=== PATIENT | female | born 1980 | race Caucasian/White ===

== ENCOUNTER → 2019-06-22 10:20 | Outpatient (CLI) | payer OTHER, SELFPAY ==
[2019-06-27 14:43] LABS: HPV Reflexed? NOT INDICATED
== END ==
PROVIDERS: Family Provider Family Medicine; PCP Family Medicine; Referring Provider Obstetrics & Gynecology; Visit Provider Obstetrics & Gynecology
DX: Z12.4 Encounter for screening for malignant neoplasm of cervix (principal)
CPT/HCPCS: 88175; G0145

== ENCOUNTER 2024-09-01 06:53 | Day surgery (SDC) | payer OTHER, SELFPAY ==
[2024-09-01] VITALS (9 sets, daily range): BP systolic 102–139; BP diastolic 63–81; PULSE 61–106; RESP 16; TEMP 35.9–37.2; O2SAT 100; BMI 33.5
[2024-09-01 07:31] LABS: Internal QC Validated? YES +Cl - CLEAR BKGD; Pregnancy, Urine Negative Negative
--- NOTE | 2024-09-01 08:01 | PRE.ANES_ITS ---
ASA Classification* ASA Classification ASA Classification: 1 Assessment & Plan Anesthesia* Anesthesia Assessment Anesthesia Assessment: Discussed sedation and/or anesthesia options, risks, benefits, and alternatives with patient/parents/legal guardian/POA. Questions invited. The patient/parents/legal guardian/POA seems to understand and agrees to proceed with anesthesia plan. Reviewed the physical assessment, medical history, allergy history and patient home medications list prior to surgery/procedure/anesthetic and documented any changes. Performed airway and anesthesia risk assessments. Anesthesia Type Anesthesia Type: General History Source History Obtained from:: Patient and Chart Anesthesia Focused Assessment* Temperature: 98.9 F Pulse Rate: 106 Blood Pressure: 102/63 Respiratory Rate: 16 Pulse Ox: 100 Oxygen Delivery Method: Room Air Airway Assessment Mouth opens: >3 cm Mallampati Score: I Teeth Condition: Intact Neck Range of motion (ROM): Full ROM Focused Labs Anesthesia Preop lab: CBC WBC 12.3 K/mm3 (4.4-11.0) H 05/09/17 17:00 7 RBC 3.94 M/mm3 (4.2-5.4) L 05/09/17 17:00 05/09/17 Hgb 12.2 g/dl (12.0-15.0) 05/09/17 17:00 05/09/17 Hct 36.4 % (37-47) L 05/09/17 17:00 05/09/17 Plt Count 162 K/mm3 (150-450) 05/09/17 17:00 05/09/17 CHEMISTRY TSH 2.12 uIU/mL (0.358-3.74) 10/01/16 10:32 COAG Urine Test Negative Negative 09/01/24 07:15 09/01/24 Pre-Assessment Diagnosis/Proposed Procedure Planned Operative Procedure(s): LEFT ESWL Anesthesia History 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 When Was Last Pacemaker Check QUESTION #4 FULL TEXT: You/Your Family Experience fever (hyperthermia) with Anesthesia Last Oral Intake Last Oral intake: Last Oral Intake NPO since 17:30 09/01/24 07:23 Meds taken in AM with sips of No 09/01/24 07:23 water? Meds patient instructed to take am of surgery PONV PONV - rip/mould operator: PONV - rip/mould operator Female Yes 08/31/24 13:53 HX of Motion Sickness No 08/31/24 13:53 HX of N/V After Surgery No 08/31/24 13:53 Non-Smoker Yes 08/31/24 13:53 Duration of Surgery greater Yes 08/31/24 13:53 than 60 minutes Number of Risk Factors 3 08/31/24 13:53 PONV Score Moderate Risk 08/31/24 13:53 Height & Weight Height & Weight: Anesthesia: Height & Weight Height 5 ft 8 in 09/01/24 07:23 Weight: 100 kg 09/01/24 07:23 Body Mass Index (BMI) 33.5 09/01/24 07:23 Respiratory Assessment Respiratory Assessment - rip/mould operator: Respiratory Tract Infection Hx - rip/mould operator Hx Respiratory Tract Infection No 08/31/24 13:53 STOP Sleep Apnea STOP Sleep Apnea - rip/mould operator: STOP Sleep Apnea - rip/mould operator Hx Hypertension No 08/31/24 13:53 Hx Sleep Apnea No 08/31/24 13:53 CPAP BIPAP Do you snore loudly (louder Yes 08/31/24 13:53 than talking or can be heard Do you often feel tired/ No 08/31/24 13:53 fatigued/ sleepy during daytime? Has anyone observed you stop No 08/31/24 13:53 breathing during sleep? STOP Results Negative 08/31/24 13:53 QUESTION #5 FULL TEXT : Do you snore loudly (louder than talking or can be heard through closed doors)? 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 Specify any problems Hx of Preganancy in last 3 No 08/31/24 13:53 Months Nurse Filling Out Transfusion DSCHRIBER 08/31/24 13:53 & Questions: Date: 08/31/24 08/31/24 13:53 Time: 13:54 08/31/24 13:53 Patient unable to answer at this time (ie. confused, unrespo /Reproduction History /Reproductive History - rip/mould operator: /Reproductive Hx- rip/mould operator Hx Now No 08/31/24 13:53 Gestational Age (in weeks): EDC: Hx Hx Para Hx Section SAB No 08/31/24 13:53 PFSH Medical History Wears glasses Wears contact lenses Alcohol use Back pain Non-smoker History of pain when walking Home Medications ?Medication ?Instructions ?Recorded ?Last Taken ?Type cefdinir 300 mg capsule 300 mg PO BID 08/31/24 Unkno wn History ketoconazole 2 % topical cream 1 applic topical BID Unknown History oxycodone-acetaminophen 5 mg-325 1 tab PO Q6H PRN PRN pain 08/31/24 Unknown History mg tablet Allergy/AdvReac Type Severity Reaction Status Date / Time No Known Allergies Allergy Verified 09/01/24 07:20 Surgical History Hx of appendectomy Social History Smoking Status: Never smoker Review of Systems (Anesthesia) ROS Narrative System reviewed and no additional complaints, except as documented.
--- NOTE | 2024-09-01 08:40 | PCM.HP.STD ---
HPI - General General Date of Service: 09/01/24 Chief Complaint: Large left kidney stone plan to treat HPI Narrative GILMER RM, is a 44 F who presents plan to treat left kidney stone with shockwave lithotripsy and stent placement [facility] Medical History Wears glasses Wears contact lenses Alcohol use Back pain Non-smoker History of pain when walking Home Medications ?Medication ?Instructions ?Recorded ?Last Taken ?Type cefdinir 300 mg capsule 300 mg PO BID 08/31/24 Unknown History ketoconazole 2 % topical cream 1 applic topical BID 08/31/24 Unknown History oxycodone-acetaminophen 5 mg-325 1 tab PO Q6H PRN PRN pain 08/31/24 Unknown History mg tablet Allergy/AdvReac Type Severity Reaction Status Date / Time No Known Allergies Allergy Verified 09/01/24 07:20 Surgical History Hx of appendectomy Social History Smoking Status: Never smoker Vital Signs Vital Signs Vital Signs: 09/01/24 07:23 09/01/24 07:23 09/01/24 08:06 Temperature 98.9 F 98.9 F Temperature Source Temporal Pulse Rate 106 H 106 H Respiratory Rate 16 16 Respiratory Pattern Normal Blood Pressure 102/63 102/63 Blood Pressure Mean 76 Blood Pressure Source Monitor Blood Pressure Position Semi-Fowlers Blood Pressure Location Left Arm Pulse Ox 100 100 Oxygen Delivery Method Room Air Room Air Weight Weight: 100 kg Body Mass Index (BMI) 33.5 Results Lab / Micro Data Labs: Laboratory Results - last 24 hr 09/01/24 07:15: Urine Test Negative
--- NOTE | 2024-09-01 08:40 | PCM.DC ---
Discharge Instructions Diet Discharge Diet: No restrictions DC O2, CPAP, BIPAP needs Home O2 Discharge instructions: No Dressing / Incision Discharge Activity: Return to Normal Activity and May Not Drive (while taking narcotic pain medications.) Dressing / Incision Call your doctor if you observe: Fever of 101 or Higher Follow Up Care Please Follow Up With: Quinn Kang MD When: Call [phone] for an appointment Test Results: Test results from this visit will be discussed in further detail at your follow-up appointment, if applicable. Discharge Plan Admission Primary Reason for Your Visit: Left kidney stone Attending Provider: Quinn Kang Primary Care Provider: AREN DUNN Instructions Print Language: Dominican Discharge Orders/Prescriptions Prescriptions: No Action cefdinir 300 mg capsule 300 mg PO BID oxycodone-acetaminophen 5-325 mg tablet 1 tab PO Q6H PRN PRN (Reason: pain) ketoconazole 2 % cream 1 applic topical BID Referrals / Follow Up: Quinn Kang MD [Med Staff - Active Staff] - AREN DUNN [employer] [Primary Care Provider] - Disposition Disposition (needs filled in before D/C Order can be placed): Home, Self Care
[2024-09-01] MEDS: Cefazolin 2 GM in Syringe IV (08:58)
--- NOTE | 2024-09-01 09:14 | PCM.OPRPT ---
Operative Report (Standard) Operative Information Date of Procedure: 09/01/24 Pre-Operative Diagnosis: Left kidney stone Post-Operative Diagnosis: The same Surgery/Procedure Performed: Cystoscopy left stent placement and left extracorporeal shockwave lithotripsy banquet chef: No Type of Anesthesia: General RN Documented Start/Stop Times: Operation Date: 09/01/24 09:00 Case Time Into Pre-Op 09/01/24 07:07 Anesthesia Start 09/01/24 08:58 Into Room 09/01/24 08:58 Procedure Start 09/01/24 09:11 Procedure Start Time: 09:11 Procedure Stop Time: 09:49 Select all DRAINS/GRAFTS/IMPLANTS that apply: Drains Drain details: Left stent Estimated Blood Loss: 0 Specimen collected: No Description of surgery: Patient presents to the hospital for treatment of a kidney stone with shockwave lithotripsy. In the preoperative area and x-ray was done to confirm the location of the stone. The x-ray was reviewed and the stone location was reviewed. In the preoperative setting I spoke with the patient regarding the treatment of the stone how the treatment would be conducted and the expectations after surgery. The patient understands there is a risk of bleeding and infection. Also discussed the very rare risk of hematoma or damage to the kidney. We also discussed the risk that the shockwave machine will fail to break the stone adequately and that the patient may need other surgical procedures. I also discussed the possibility that the patient may need a stent after the procedure. After reviewing the procedure with the patient, the patient is signed the consent form all the patient's questions were addressed and was taken back to the operating room for treatment of a kidney stone. The urethra and genitals were prepped and draped in usual sterile fashion. Using a 21 [place] rigid cystourethroscope the entire length of the urethra was normal then went into the bladder. Identified the trigone the left and right ureteral orifice. I then cannulated the left ureteral orifice and advanced a wire up into the kidney. I then backloaded a 5 [place] open ended catheter over the wire. I then used fluoroscopic images and guidance to advanced a wire up into the kidney and over the 0.038 glidewire I advanced a 6 [place] by 26 cm double pigtail stent. I then pulled the 0.038 Glidewire off and the stent coiled in the kidney bladder good position. The bladder was then drained. The patient was identified by the nursing staff, I identified the side of the treatment and the patient side of treatment had been marked by my initials. The patient underwent general anesthetic and was placed supine on the lithotripter table. I then used fluoroscopy to identify the stone on the left kidney in the upper pole. I then positioned the patient under the lithotripter and I used triangulation technique to identify the location of the stone and then I made sure that the stone was engaged in the F2 focal point of F2 Donier lithoprior machine. Once the patient was positioned appropriately and the stone was identified and placed in the F2 focal point of the lithotripter machine I then proceeded with shockwave lithotripsy. In the beginning the shockwave was delivered at a rate of 90 shocks per minute, anesthesia monitored the EKG for any ectopy. The power was slowly increased to 5 kV and subsequently at the 7 kV. I then proceeded with the treatment with shock wave therapy and around during the treatment to make sure the stone stayed in the F2 focal point during the entire treatment and after 3000 shockwaves were delivered to the stone under fluoroscopic guidance the treatment was completed. The patient was given instructions to call the office to make an a follow-up appointment with an xray to evaluate the success of the treatment, pateint understands that its possible the stones may need another procedure.At this point the patient's anesthetic was reversed patient was extubated and taken back to the PACU in stable condition. Surgical Findings: Stone in upper part of the left kidney treated with shockwave lithotripsy Complications Complications: No Admit VTE Documentation VTE Present on Admission: No VTE Mechan Device Prophylaxis: SCD's VTE Pharm Prophylaxis ordered?: No
[2024-09-01] MEDS: Ketorolac 15 MG/ML Vial IV (10:09)
[2024-09-01] MEDS: oxyCODONE 5 MG Tablet PO (10:56)
[2024-09-01] MEDS: Acetaminophen 325 MG Tablet 650 MG PO (10:56)
--- NOTE | 2024-09-01 16:28 | PCM.POST.ANE ---
Anesthesia: Postop Eval I Current Vital Signs Temperature: 97.3 F Pulse Rate: 69 Blood Pressure: 109/76 Respiratory Rate: 16 Pulse Ox: 100 Assessment Airway patent: Yes Spontaneous unlabored respirations: Yes nausea: No Vomiting: No Anesthesia Complication: No Fluid Hydration Crystalloid volume administer (ml): 500 Total IV fluid infused: 500 Progress Note Anesthesia document: Postop Eval 1 completed: Yes
--- NOTE | 2024-09-01 16:29 | POSTOPAN2_ITS ---
Anesthesia Postop Eval I Sum Postop Eval Completion status Anesthesia document: Postop Eval 1 completed: Yes Anesthesia Postop Eval I Summary Anesthesia Postop Eval I Summary: Anesthesia Postop Eval I: Assessment Summary Airway patent Yes 09/01/24 16:28 RAILWAY SIGNAL [email or web address] Spontaneous unlabored Yes 09/01/24 16:28 RAILWAY SIGNAL ELECTRICIAN.[email or web address] respirations Mental status nausea No 09/01/24 16:28 RAILWAY SIGNAL ELECTRICIAN.[email or web address] Vomiting No 09/01/24 16:28 RAILWAY SIGNAL [email or web address].[email or web address] Anesthesia Postop Eval I: Fluid Summary Crystalloid volume administer 500 09/01/24 16:28 RAILWAY SIGNAL ELECTRICIAN.TNES (ml) Colloids volume administered ( ml) Blood Product volume administered (ml) Total IV fluid infused 500 09/01/24 16:28 RAILWAY SIGNAL [email or web address].[email or web address] Anesthesia Postop Eval I: Summary Notes Anesthesia Complication No 09/01/24 16:28 RAILWAY SIGNAL ELECTRICIAN.TNES Anesthesia Complication Comment: Post-operative progress note Anesthesia: Postop Eval II Evaluation Mental status: Awake and Calm Pain Level: 1 nausea: No Vomiting: No Complications Anesthesia Complication: No
--- NOTE | 2024-09-01 16:29 | PCM.POSTANE2 ---
Anesthesia Postop Eval I Sum Postop Eval Completion status Anesthesia document: Postop Eval 1 completed: Yes Anesthesia Postop Eval I Summary Anesthesia Postop Eval I Summary: Anesthesia Postop Eval I: Assessment Summary Airway patent Yes 09/01/24 16:28 SECONDARY SET UP MAN.[email or web address] Spontaneous unlabored Yes 09/01/24 16:28 SECONDARY SET UP MAN.TNES respirations Mental status nausea No 09/01/24 16:28 SECONDARY SET UP MAN.TNES Vomiting No 09/01/24 16:28 SECONDARY SET UP MAN.TNES Anesthesia Postop Eval I: Fluid Summary Crystalloid volume administer 500 09/01/24 16:28 SECONDARY SET UP MAN.TNES (ml) Colloids volume administered ( ml) Blood Product volume administered (ml) Total IV fluid infused 500 09/01/24 16:28 SECONDARY SET UP MAN.TNES Anesthesia Postop Eval I: Summary Notes Anesthesia Complication No 09/01/24 16:28 SECONDARY SET UP MAN.TNES Anesthesia Complication Comment: Post-operative progress note Anesthesia: Postop Eval II Evaluation Mental status: Awake and Calm Pain Level: 1 nausea: No Vomiting: No Complications Anesthesia Complication: No
== END 2024-09-01 11:40 | disposition home or self-care (01) ==
LOC: SDC 06:54 → AC 06:55
PROVIDERS: Anesthesiology; PCP Nurse Practitioner Family; Referring Provider Urology; Visit Provider Urology
PROC: (CPT 50590; principal; 2024-09-01 08:50)
DX: N20.0 Calculus of kidney (principal)
CPT/HCPCS: 52332; 50590; 00910; 81025; C1769; C2617; J2405